=== PATIENT | female | born 1965 | race Caucasian/White ===

== ENCOUNTER → 2018-06-07 | Outpatient (CLI) | payer OTHER | END | disposition home or self-care (01) | LOC: LAB 14:48 | PROVIDERS: ATTEND Nurse Practitioner Family | DX: G25.81 Restless legs syndrome (principal) | CPT/HCPCS: 36415; 83540; 83550 ==

== ENCOUNTER → 2018-06-21 | Outpatient (CLI) | payer OTHER ==
--- NOTE | 2018-06-21 17:03 | KCIC ---
MRI Lumbar Spine without contrast History: Lumbar pain, right radiculopathy, worsening pain the last 2 weeks Technique: Multiplanar, multi sequential noncontrast MR imaging was performed of the lumbar spine. Comparison: None Findings: There is mild motion. Lumbar vertebral body stature and AP alignment are maintained. Conus terminates at L1-L2. There is no significant marrow edema. There is mild degenerative disc disease L5-S1 and L4-5, mild disc desiccation L3-4, L2-3, and T12-L1. There are are small foci of fatty marrow replacement or hemangiomas of L1 and T11 vertebral bodies. There is no significant marrow edema. T12-L1: There is very shallow protrusion in the right paracentral region. Neural foramina and spinal canal are adequate. L1-L2: Neural foramina and spinal canal are adequate. There is mild buckling of the ligamentum flavum. L2-L3: There is mild facet hypertrophic change. Neural foramina and spinal canal are adequate. L3-L4: There is mild facet hypertrophic change and prominence of posterior epidural fat. There is negligible disc osteophyte complex. Neural foramina and spinal canal are adequate. L4-L5: There is mild buckling of the ligamentum flavum and facet degenerative change. There is negligible disc osteophyte complex. Spinal canal and neural foramina are adequate. L5-S1: There is mild facet hypertrophic change greater on the right. There is negligible disc osteophyte complex. Spinal canal and the neural foramina are adequate. Impression: 1. There is no significant lumbar spinal stenosis or neural foramina compromise. There is mild degenerative disc disease greatest L4-5 and L5-S1, minimal spondylosis. Electronically signed by: Petey Angela MD (06/21/2018 5:00 PM) [facility]
== END | disposition home or self-care (01) ==
LOC: KCIC MRI 15:57
PROVIDERS: ATTEND Nurse Practitioner Family
DX: M51.36 Other intervertebral disc degeneration, lumbar region (principal); M47.896 Other spondylosis, lumbar region; M51.25 Other intervertebral disc displacement, thoracolumbar region; M51.37 Other intervertebral disc degeneration, lumbosacral region
CPT/HCPCS: 72148

== ENCOUNTER → 2018-11-22 | Outpatient (CLI) | payer OTHER ==
--- NOTE | 2018-11-22 11:27 | RAD ---
DATE: 11/22/2018 EXAM: MAMMO THERESA SCREENING BILATERAL HISTORY: Routine screening COMPARISON: 09/09/2017 This study was interpreted with the benefit of Computerized Aided Detection (CAD). Breast Density: SCATTERED The breast parenchyma shows scattered fibroglandular densities. Breast parenchyma level B. FINDINGS: 2-D and 3-D tomosynthesis imaging was performed in CC and MLO projections. Breast biopsy markers are again noted laterally in the right breast and superiorly in the left breast. Small bilateral breast nodules are unchanged. No new or enlarging breast densities are seen. There are stable scattered microcalcifications suggesting a benign etiology. IMPRESSION: Stable mammograms without evidence of malignancy. BI-RADS CATEGORY: 2 BENIGN FINDING(S) RECOMMENDED FOLLOW-UP: 12M 12 MONTH FOLLOW-UP PQRS compliance statement: Patient information was entered into a reminder system with a target due date for the next mammogram. Mammography is a sensitive method for finding small breast cancers, but it does not detect them all and is not a substitute for careful clinical examination. A negative mammogram does not negate a clinically suspicious finding and should not result in delay in biopsying a clinically suspicious abnormality. "Our facility is accredited by the [employer] Mammography Program."
== END | disposition home or self-care (01) ==
LOC: MAMMO 07:36
PROVIDERS: ATTEND Nurse Practitioner Family
DX: Z12.31 Encounter for screening mammogram for malignant neoplasm of breast (principal); N63.10 Unspecified lump in the right breast, unspecified quadrant; N63.20 Unspecified lump in the left breast, unspecified quadrant
CPT/HCPCS: 77063; 77067

== ENCOUNTER → 2018-11-27 | Outpatient (CLI) | payer OTHER | END | disposition home or self-care (01) | LOC: SPEC 10:04 | PROVIDERS: ATTEND Nurse Practitioner Family | DX: Z01.419 Encounter for gynecological examination (general) (routine) without abnormal findings (principal) | CPT/HCPCS: 88175 ==

== ENCOUNTER → 2019-02-20 | Outpatient (CLI) | payer OTHER ==
[2019-02-20 18:13] LABS: ESTRADIOL LEVEL 18.1 pg/mL (.)
[2019-02-20 19:10] LABS: PROGESTERONE 0.2 ng/mL (.)
== END | disposition home or self-care (01) ==
LOC: LAB 07:50
PROVIDERS: ATTEND Nurse Practitioner Family
DX: Z79.890 Hormone replacement therapy (principal)
CPT/HCPCS: 36415; 82670; 84144; 84402; 84403; 84443

== ENCOUNTER → 2019-03-15 | Outpatient (CLI) | payer OTHER ==
--- NOTE | 2019-03-15 16:39 | RAD ---
EXAM: Pelvic sonogram. HISTORY: Postmenopausal bleeding. TECHNIQUE: Transabdominal sonographic imaging of the pelvis was performed. COMPARISON: None. FINDINGS: The uterus measures 7.4 x 4.7 x 4.2 cm. The endometrial stripe measures less than 2 mm in thickness. The ovaries are obscured due to bowel loops within the adnexal regions. There is no pelvic free fluid. IMPRESSION: 1. Obscured ovaries. 2. Thin endometrium consistent with the postmenopausal status of patient. Electronically signed by: Keely Styles MD (03/15/2019 4:36 PM) [place] [id number]
== END | disposition home or self-care (01) ==
LOC: US 15:36
PROVIDERS: ATTEND Nurse Practitioner Family
DX: N95.0 Postmenopausal bleeding (principal)
CPT/HCPCS: 76830; 76856

== ENCOUNTER → 2019-05-07 | Outpatient (CLI) | payer OTHER ==
--- NOTE | 2019-05-08 09:20 | CARD ---
MR#: [id number] Date of Study: 05/07/2019 Ordering Physician: EDWIGE PEREZ, Referring Physician: EDWIGE PEREZ Tech: Marcela Caicedo RDCS APPROVED REPORT EXAM: Two-dimensional and M-mode echocardiogram with Doppler and color Doppler. Other Information Quality : Good INDICATION Hypertension/HCVD 2D DIMENSIONS RVDd2.7 (2.9-3.5cm)Left Atrium(2D)3.4 (1.6-4.0cm) IVSd0.9 (0.7-1.1cm)Aortic Root(2D)2.9 (2.0-3.7cm) LVDd3.6 (3.9-5.9cm)LVOT Diameter2.1 (1.8-2.4cm) PWd1.0 (0.7-1.1cm)LVDs2.4 (2.5-4.0cm) FS (%) 32.5 %SV33.8 ml LVEF(%)61.8 (>50%) Aortic Valve AoV Peak Yuri.126.0cm/sAoV VTI23.7cm AO Peak GR.6.3mmHgLVOT Peak Yuri.108.1cm/s AO Mean GR.4mmHgAVA (VMAX)2.86cm2 SÁNCHEZ (VTI)3.00cm2 Mitral Valve MV E Cgpsssbq01.4cm/sMV DECEL LIAE458dl MV A Ljrbgeho89.1cm/sE/A Ratio0.9 Tricuspid Valve TR P. Dkyxleou608hr/sRAP LMUOOOAT8hbOq TR Peak Gr.53mrEkDUSX05unKd Pulmonary Vein S1 Fmsbbxan61.7cm/sD2 Mwvuwhfr69.9cm/s LEFT VENTRICLE The left ventricle is normal size. There is normal left ventricular wall thickness. The left ventricu lar systolic function is normal. The Ejection Fraction is 55-60%. There is normal LV segmental wall m otion. The left ventricular diastolic function and filling is normal for age. RIGHT VENTRICLE The right ventricle is normal size. The right ventricular systolic function is normal. ATRIA The left atrium size is normal. The right atrium size is normal. The interatrial septum is intact wit h no evidence for an atrial septal defect or patent foramen ovale as noted on 2-D or Doppler imaging. AORTIC VALVE The aortic valve is normal in structure and function. Doppler and Color Flow revealed no significant aortic regurgitation. There is no significant aortic valvular stenosis. MITRAL VALVE The mitral valve is normal in structure and function. There is no evidence of mitral valve prolapse. There is no mitral valve stenosis. Doppler and Color-flow revealed trace mitral regurgitation. TRICUSPID VALVE The tricuspid valve is normal in structure and function. Doppler and Color Flow revealed trace tricus pid regurgitation. The PA pressure was estimated at 28 mmHg. There is no tricuspid valve stenosis. PULMONIC VALVE The pulmonic valve is not well visualized. Doppler and Color Flow revealed no pulmonic valvular regur gitation. There is no pulmonic valvular stenosis. GREAT VESSELS The aortic root is normal in size. The ascending aorta is normal in size. The IVC is normal in size a nd collapses >50% with inspiration. PERICARDIAL EFFUSION There is no evidence of significant pericardial effusion. Critical Notification Critical Value: No <Conclusion> The left ventricular systolic function is normal. The Ejection Fraction is 55-60%. There is normal LV segmental wall motion. Trace mitral regurgitation. Trace tricuspid regurgitation. The PA pressure was estimated at 28 mmHg. There is no evidence of significant pericardial effusion. Signed by : Edwige Perez, Electronically Approved : 05/07/2019 15:40:45
== END | disposition home or self-care (01) ==
LOC: ECHO 14:35
PROVIDERS: ATTEND Internal Medicine Cardiovascular Disease
DX: I10 Essential (primary) hypertension (principal)
CPT/HCPCS: 93306

== ENCOUNTER → 2019-05-23 | Outpatient (CLI) | payer OTHER ==
[2019-05-28 06:12] LABS: ALDOSTERONE 11.8 ng/dL (0.0-30.0)
== END | disposition home or self-care (01) ==
LOC: LAB 11:56
PROVIDERS: ATTEND Internal Medicine Cardiovascular Disease
DX: I10 Essential (primary) hypertension (principal)
CPT/HCPCS: 36415; 82088; 84244

== ENCOUNTER → 2019-05-23 | Outpatient (CLI) | payer OTHER ==
[2019-05-23 12:41] LABS: ALBUMIN 4.2 g/dL (3.4-5.0); ALBUMIN/GLOBULIN RATIO 1.1 (1.0-1.7); CALCIUM 9.4 mg/dL (8.5-10.1); GFR 58.2; POTASSIUM 3.7 mmol/L (3.5-5.1); TOTAL BILIRUBIN 0.5 mg/dL (0.2-1.0); TOTAL PROTEIN 8.1 g/dL (6.4-8.2)
== END | disposition home or self-care (01) ==
LOC: LAB 11:51
PROVIDERS: ATTEND Nurse Practitioner Family
DX: E87.6 Hypokalemia (principal)
CPT/HCPCS: 36415; 80053

== ENCOUNTER → 2019-06-04 | Outpatient (CLI) | payer OTHER ==
--- NOTE | 2019-06-04 11:12 | RAD ---
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 The right great saphenous vein measures 6.9 mm with a maximum reflux time of 2.5 seconds The left great saphenous vein measures 4.8 mm with a maximum reflux time of 2.2 seconds. Bilateral lesser saphenous veins do not show any obvious evidence of reflux. Critical Notification Critical Value: No <Conclusion> 1. Positive for reflux in the bilateral greater saphenous veins. Signed by : Basilio Fleming, Electronically Approved : 06/04/2019 11:11:58
--- NOTE | 2019-06-04 11:26 | RAD ---
MR#: [id number] Date of Study: 06/04/2019 Ordering Physician: EDWIGE PEREZ, Referring Physician: EDWIGE PEREZ, Tech: APPROVED REPORT Renal Artery Doppler Right Renal Artery Left Renal Arter y Proximal 157.8/63.1 cm/secProximal 85.5/36.6 cm/sec Mid 131.2/50.1 cm/secMid 119.1/45.8 cm/sec Distal 102.6/41.4 cm/secDistal 70.0/31.0 cm/sec Renal/Aorta Ratio 1.22Renal/Aorta Ratio 0.92 Prox. Resistive Index 0.60Prox. Resistive Index 0.57 Mid Resistive Index 0.62Mid Resistive Index 0.62 Distal Resistive Index 0.60Distal Resistive Index 0.56 Renal Measurements RightLeft Kidney Length9.64 cm cmKidney Wzklnf67.14 cm cm Right Additional FindingsLeft Additional Findings Findings Grayscale images of the bilateral kidneys are grossly unremarkable. Spectral waveforms of the aorta, proximal, mid and distal renal arteries are grossly unremarkable. No rmal renal to aortic ratios. Incidental finding is made of a mild to moderate fatty liver disease. Critical Notification Critical Value: No <Conclusion> 1. No significant renal artery stenosis 2. Incidental note of fatty liver disease. Further clinical correlation recommended. Signed by : Basiilo Fleming, Electronically Approved : 06/04/2019 11:26:22
== END | disposition home or self-care (01) ==
LOC: US 08:05
PROVIDERS: ATTEND Internal Medicine Cardiovascular Disease
DX: I10 Essential (primary) hypertension (principal); E11.9 Type 2 diabetes mellitus without complications; I87.2 Venous insufficiency (chronic) (peripheral); K76.0 Fatty (change of) liver, not elsewhere classified
CPT/HCPCS: 76770; 93970

== ENCOUNTER → 2019-07-18 | Outpatient (CLI) | payer OTHER ==
--- NOTE | 2019-07-18 17:04 | RAD ---
CHEST PA LATERAL INDICATION: Cough. COMPARISON STUDY: None. FINDINGS: Lungs: Normal lung volume. No pulmonary mass or consolidation. The tracheobronchial tree and hilar structures are normal. Pleura: No pleural effusion or pneumothorax. Heart and Mediastinum: The cardiomediastinal silhouette is normal. The great vessels of the thorax are normal. Bones and Soft Tissues: Degenerative changes of the spine. IMPRESSION: No acute cardiopulmonary process. Electronically signed by: Petey Castillo MD (07/18/2019 5:01 PM) [facility]
== END ==
LOC: RAD 10:37
PROVIDERS: ATTEND Nurse Practitioner Family
DX: R05 Cough (principal); M47.819 Spondylosis without myelopathy or radiculopathy, site unspecified
CPT/HCPCS: 71046

== ENCOUNTER → 2019-08-29 | Outpatient (CLI) | payer OTHER ==
--- NOTE | 2019-08-29 12:27 | RAD ---
MR#: [id number] Date of Study: 08/29/2019 Ordering Physician: EDWIGE PEREZ, Referring Physician: EDWIGE PEREZ, Tech: Edward Miranda MBA, RDMS, RVT, RDCS, RTR APPROVED REPORT Left Lower Extremity Venous Study for DVT Patient Location: OUT-PATIENT Indications S/P VENASEAL Vein Imaging (Left) CFV (L): Compressible SFJ (L): Compressible FEM (L): Compressible POP (L): Compressible DFV (L): Compressible PTV (L): Spontaneous GSV (L): Absent Flow Peroneals (L): Spontaneous Doppler Evaluation (Left) CFV (L):Spontaneous POP (L):Spontaneous Findings The left lower extremity deep veins were evaluated for thrombus with color Doppler, spectral and jackson scale images. On the left, the grayscale images of the common femoral, superficial femoral and popliteal veins do n ot demonstrate any evidence of thrombus and these veins appear to be compressible. The below-knee vei ns again were not well visualized but grossly appear to be compressible. Spectral imaging and color D oppler do not reveal any evidence of obstruction to flow with normal respirophasic variation above th e knee. The below-knee veins demonstrate spontaneous flow. Critical Notification Critical Value: No <Conclusion> Negative for DVT in the LLE Successful LGSV ablation. Signed by : Basilio Fleming, Electronically Approved : 08/29/2019 12:26:56
== END | disposition home or self-care (01) ==
LOC: US 15:30
PROVIDERS: ATTEND Internal Medicine Cardiovascular Disease
DX: I87.2 Venous insufficiency (chronic) (peripheral) (principal)
CPT/HCPCS: 93971

== ENCOUNTER → 2019-09-05 | Outpatient (CLI) | payer OTHER ==
--- NOTE | 2019-09-07 06:50 | RAD ---
MR#: [id number] Date of Study: 09/05/2019 Ordering Physician: EDWIGE PEREZ, Referring Physician: EDWIGE PEREZ, Tech: ADDY Hartley, RDSD, t APPROVED REPORT Right Lower Extremity Venous Study for DVT Patient Location: OUT-PATIENT Indications rle post ablation Findings On the right the grayscale images of the common femoral, superficial femoral and popliteal veins do n ot demonstrate any evidence of thrombus and these veins appear to be compressible. The below-knee vei ns were not well visualized but grossly appear to be compressible. Spectral imaging and color Doppler do not reveal any evidence of obstruction to flow with normal respirophasic variation above the knee . Below the knee there is spontaneous flow noted. The right great saphenous vein is thrombosed consistent with recent ablation. Critical Notification Critical Value: No <Conclusion> 1. No evidence of DVT in the right lower extremity 2. Successful right great saphenous vein ablation. Signed by : Basilio Fleming, Electronically Approved : 09/07/2019 06:50:09
== END | disposition home or self-care (01) ==
LOC: US 12:16
PROVIDERS: ATTEND Internal Medicine Cardiovascular Disease
DX: I87.2 Venous insufficiency (chronic) (peripheral) (principal)
CPT/HCPCS: 93971

== ENCOUNTER → 2019-09-10 | Outpatient (CLI) | payer OTHER ==
--- NOTE | 2019-09-11 13:36 | SLEEP ---
DATE OF STUDY: 09/10/2019 REFERRING PHYSICIAN: Ingrid Apple APRN The patient is 54 years old, who weighs 215 pounds with a BMI of 50. The patient's [place] score was 10. The patient underwent split night study performed at [facility]. During the night study, the patient spent 440 minutes in bed and slept for 342 minutes with a sleep efficiency of 78%. Sleep latency was 44 minutes with a REM latency of 203 minutes. Sleep architecture showed increased stage 1 and stage 2 sleep, normal slow wave and normal REM sleep. During the initial diagnostic portion of the study, the patient slept for 244 minutes. During that time, the patient had 39 obstructive apneas, 6 mixed apneas, no central apneas, and 56 hypopneas. The patient's AHI was 25 per hour, supine AHI 32 per hour, and a REM AHI of 24 per hour. EKG monitoring revealed an average heart rate of 69 beats per minute, no arrhythmias observed. PLMs were seen at index of 54 per hour and 5 per hour caused EEG arousals. Nocturnal oximetry study revealed a mean oxygen saturation of 96% with the lowest of 85%. Only 1% of time oxygen saturation remained between 80% and 89%. The patient met the criteria for CPAP initiation. It was started at 5 cm water and titrated up to 9 cm water. At the final pressure, the patient slept for 47 minutes. The patient had supine sleep, but no REM sleep. The patient's AHI was reduced to 0 per hour and oxygen saturation remained above 93%. The patient used medium-size full face mask. IMPRESSION: 1. Moderate sleep apnea-hypopnea syndrome with worsening during supine sleep. 2. Severe periodic limb movements. 3. No clinically significant nocturnal hypoxia. RECOMMENDATIONS: 1. CPAP at 9 cm water completely eliminated the patient's sleep apnea and should be used on a nightly basis. 2. Follow up in 4-6 weeks to assess compliance with CPAP and to document clinical improvement. 3. Weight loss is strongly advised. 4. Avoid [employer] depressants. 5. Cautioned regarding driving until symptoms of sleep apnea resolve with the use of CPAP. 6. The patient should also be further evaluated for symptoms of restless legs during the day. 7. The patient used medium-size full face mask. KALYANI SAEED MD DR: GENIA/charles JOB#: [id number] / [id number]
== END | disposition home or self-care (01) ==
LOC: SLPLAB 19:23
PROVIDERS: ATTEND Internal Medicine Critical Care Medicine
DX: G47.33 Obstructive sleep apnea (adult) (pediatric) (principal); G47.61 Periodic limb movement disorder; G47.10 Hypersomnia, unspecified
CPT/HCPCS: 95810

== ENCOUNTER → 2019-10-08 | Day surgery (SDC) | payer OTHER ==
[~2019-10-08] MED LIST: AMLO10TA8 PO; BUDE10.2 IH; CETI10CA PO; HYDR12.575 PO; IRBE300T23 PO; IV RINGERS,LACTATED 1000ML 1,000 ML IV SCH; LANS30CA PO; LIDOCAINE 2% PF 5 ML VIAL. ONE; METF500T16 PO; METH30CP PO; PROPOFOL 60 ML IV ONE; SERT100T PO; UBID10CA5 PO
[2019-10-08 11:04] VITALS: BP 120/73
== END ==
LOC: ENDOS 08:32
PROVIDERS: ATTEND Internal Medicine Gastroenterology
DX: Z12.11 Encounter for screening for malignant neoplasm of colon (principal); K29.50 Unspecified chronic gastritis without bleeding; K63.5 Polyp of colon; K57.30 Diverticulosis of large intestine without perforation or abscess without bleeding; K21.0 Gastro-esophageal reflux disease with esophagitis; K64.0 First degree hemorrhoids; K44.9 Diaphragmatic hernia without obstruction or gangrene; D64.9 Anemia, unspecified; F41.9 Anxiety disorder, unspecified; J45.909 Unspecified asthma, uncomplicated; F32.9 Major depressive disorder, single episode, unspecified; I10 Essential (primary) hypertension; F15.90 Other stimulant use, unspecified, uncomplicated; Z91.040 Latex allergy status; Z87.39 Personal history of other diseases of the musculoskeletal system and connective tissue; Z72.89 Other problems related to lifestyle; Z87.891 Personal history of nicotine dependence
CPT/HCPCS: 43239; 43450; 45380; J2001; J2704

== ENCOUNTER → 2020-01-14 | Outpatient (CLI) | payer OTHER ==
[2019-10-08 11:04] VITALS: BP 120/73
[~2020-01-14] MED LIST changes: -IV RINGERS,LACTATED 1000ML 1,000 ML IV SCH; -LIDOCAINE 2% PF 5 ML VIAL. ONE; -PROPOFOL 60 ML IV ONE
--- NOTE | 2020-01-14 18:20 | RAD ---
DATE: 01/14/2020 8:17 AM EXAM: MAMMO THERESA SCREENING BILATERAL HISTORY: Screening COMPARISON: 11/22/2018 Bilateral CC and MLO views of the breasts were performed. Bilateral breast tomosynthesis was performed in CC and MLO projections. This study was interpreted with the benefit of Computerized Aided Detection (CAD). FINDINGS: Breast Density: SCATTERED The breast parenchyma shows scattered fibroglandular densities. Breast parenchyma level B No suspicious masses, microcalcifications or architectural distortion is present to suggest malignancy in either breast. The visualized axillae are unremarkable. IMPRESSION: No mammographic evidence of malignancy. BI-RADS CATEGORY: 1 NEGATIVE RECOMMENDED FOLLOW-UP: 12M 12 MONTH FOLLOW-UP Annual screening mammography is recommended, unless clinically indicated sooner based on symptoms or change in physical exam. PQRS compliance statement: Patient information was entered into a reminder system with a target due date 01/14/2021 for the next mammogram. Mammography is a sensitive method for finding small breast cancers, but it does not detect them all and is not a substitute for careful clinical examination. A negative mammogram does not negate a clinically suspicious finding and should not result in delay in biopsying a clinically suspicious abnormality. "Our facility is accredited by the [employer] Mammography Program."
== END | disposition home or self-care (01) ==
LOC: MAMMO 10:14
PROVIDERS: ATTEND Nurse Practitioner Family
DX: Z12.31 Encounter for screening mammogram for malignant neoplasm of breast (principal)
CPT/HCPCS: 77063; 77067

== ENCOUNTER → 2020-01-29 | Outpatient (CLI) | payer OTHER ==
[2019-10-08 11:04] VITALS: BP 120/73
--- NOTE | 2020-01-29 15:48 | KCIC ---
PROCEDURE: FOOT LEFT 3V STUDY DATE: 01/29/2020 CLINICAL INDICATION / HISTORY: Reason: LT FOOT PAIN WORSE IN HEEL 1-2 WEEKS, NO KNOWN INJURY / Spl. Instructions: / History: . TECHNIQUE: AP, lateral and oblique views of the left foot. COMPARISON: None FINDINGS: No fracture or dislocation is identified. The bone density is normal. The joint space widths are maintained, and there are no erosions to suggest an inflammatory arthropathy. No soft tissue abnormality is seen. Small calcaneal spur. IMPRESSION: Small calcaneal spur. No acute osseous abnormality shown. Correlate for plantar fasciitis. Electronically signed by: Maya Hernández MD (01/29/2020 3:45 PM) [id number]
== END | disposition home or self-care (01) ==
LOC: KCIC 14:18
PROVIDERS: ATTEND Nurse Practitioner Family
DX: M77.32 Calcaneal spur, left foot (principal); M72.2 Plantar fascial fibromatosis
CPT/HCPCS: 73630